=== PATIENT | female | born 1975 | race Caucasian/White ===

== ENCOUNTER 2018-10-12 09:13 | Emergency (ER) | payer MEDICAID ==
--- NOTE | 2018-10-12 09:55 | RADIOLOGY REPORT (SQ) ---
EXAM DESCRIPTION: CHEST SINGLE VIEW COMPLETED DATE/TIME: 10/12/2018 9:44 am REASON FOR STUDY: leg swelling COMPARISON: None. EXAM PARAMETERS: NUMBER OF VIEWS: One view. TECHNIQUE: Single frontal radiographic view of the chest acquired. RADIATION DOSE: NA LIMITATIONS: None. FINDINGS: LUNGS AND PLEURA: No opacities, masses or pneumothorax. No pleural effusion. MEDIASTINUM AND HILAR STRUCTURES: No masses. Contour normal. HEART AND VASCULAR STRUCTURES: Heart normal in size. Normal vasculature. BONES: No acute findings. HARDWARE: None in the chest. OTHER: No other significant finding. IMPRESSION: NO ACUTE RADIOGRAPHIC FINDING IN THE CHEST. TECHNICAL DOCUMENTATION: JOB ID: [id number] [employer]- All Rights Reserved Reading location - IP/workstation name: [email or web address]
[2018-10-12 10:12] LABS: ABSOLUTE BASOPHILS # (AUTO) 0.1 10^3/uL (0.0-0.2); ABSOLUTE EOSINOPHILS # (AUTO) 0.4 10^3/uL (0.0-0.6); ABSOLUTE LYMPHOCYTES (AUTO) 2.3 10^3/uL (0.5-4.7); ABSOLUTE NEUT (AUTO) 10.3 10^3/uL (1.7-8.2); BASOPHILS % (AUTO) 0.5 % (0-2); EOSINOPHILS % (AUTO) 2.8 % (0-6); HEMATOCRIT 37.7 % (36.0-47.0); HEMOGLOBIN 12.9 g/dL (12.0-15.5); LYMPHOCYTES % (AUTO) 16.1 % (13-45); MEAN CORPUSCULAR HEMOGLOBIN 30.8 pg (27.0-33.4); MEAN CORPUSCULAR HGB CONC 34.1 g/dL (32.0-36.0); MEAN CORPUSCULAR VOLUME 90 fl (80-97); MONOCYTES % (AUTO) 7.2 % (3-13); PLATELET COUNT 353 10^3/uL (150-450); RED BLOOD COUNT 4.17 10^6/uL (3.72-5.28); RED CELL DISTRIBUTION WIDTH 16.4 % (11.5-14.0); SEGMENTED NEUTROPHILS % (AUTO) 73.4 % (42-78); TOTAL CELLS COUNTED % (AUTO) 100 %
[2018-10-12 10:31] LABS: ANION GAP 7 (5-19); BLOOD UREA NITROGEN 12 mg/dL (7-20); CARBON DIOXIDE 25 mmol/L (22-30); CHLORIDE 107 mmol/L (98-107); GLUCOSE 82 mg/dL (75-110); POTASSIUM 4.4 mmol/L (3.6-5.0); SODIUM 138.9 mmol/L (137-145)
[2018-10-12 10:45] LABS: NT PRO BNP 377 pg/mL (<125)
[2018-10-12 10:55] LABS: TROPONIN I < 0.012 ng/mL
--- NOTE | 2018-10-12 12:59 | ER Document Report ---
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 She denies any history of heart failure, chest pain, palpitations, shortness of breath, abdominal pain diarrhea constipation dysuria rashes or fevers. She does endorse some chills. Has not tried anything to try and make this better, nothing seems to make it better or worse. Past Medical History - General Information source: Patient, Relative - Social History Smoking Status: Current Every Day Smoker Frequency of alcohol use: None Drug Abuse: None Family History: None Patient has suicidal ideation: No Patient has homicidal ideation: No Endocrine Medical History: Reports: Hx Diabetes Mellitus Type 2 Renal/ Medical History: Denies: Hx Peritoneal Dialysis Past Surgical History: Reports: Hx Cardiac Surgery - Carotid artery surgery, Aortic surgery x2, Hx Orthopedic Surgery - R BKA, Amputation of 5th toe to left foot Review of Systems - Review of Systems -: Yes All other systems reviewed and negative Physical Exam - Vital signs Vitals: Temp Pulse Resp BP Pulse Ox 98.4 F 88 16 149/70 H 98 10/12/18 09:17 10/12/18 09:17 10/12/18 09:17 10/12/18 09:17 10/12/18 09:17 - General General appearance: Appears well In distress: None - HEENT Head: Normocephalic, Atraumatic Eyes: Normal Pupils: PERRL - Respiratory Respiratory status: No respiratory distress Chest status: Nontender Breath sounds: Normal Chest palpation: Normal - Cardiovascular Rhythm: Regular Heart sounds: Normal auscultation Murmur: No - Abdominal Inspection: Normal Distension: No distension - Back Back: Normal - Extremities General upper extremity: Normal inspection General lower extremity: Other - Absent right-sided BKA Left lower extremity is modestly edematous most prominent from the level of the knee inferiorly with +1 pitting edema - Neurological Neuro grossly intact: Yes Cognition: Normal Orientation: AAOx4 Pipe Coma Scale Eye Opening: Spontaneous Pipe Coma Scale Verbal: Oriented Pipe Coma Scale Motor: Obeys Commands Pipe Coma Scale Total: 15 Speech: Normal Motor strength normal: LUE, RUE, LLE Sensory: Normal - Psychological Associated symptoms: Normal affect, Normal mood Course - Re-evaluation Re-evalutation: 42-year-old female with leg swelling. Has profound peripheral vascular disease requiring previous BKA as well as endarterectomy she also has a triple leg continues to smoke at least a pack of cigarettes daily. On examination her leg demonstrates modest pitting edema. There is no obvious erythema, fluctuance, diminished range of motion. Patient does not demonstrate any obvious systemic signs of action at this time. She does demonstrate a slight leukocytosis at this time I do not believe this represents underlying cellulitis or infectious process in the left lower extremity. I believe that the patient's left lower extremity demonstrates dependent edema, she has had labs drawn which was also evaluated for possible cardiac etiology and chest x-ray no obvious edema on chest x-ray. Her BNP is modestly elevated though there is relatively low sensitivity for fluid overloaded at this level. Will plan for this patient undergo discharge with a use of Lasix twice daily. She is in agreement with this plan at this time. Current plan will be for patient undergo discharge with return precautions, she has required social work evaluation because they do not have transportation reliably. Was discharged with a brief prescription for Lasix as listed as well as 3 pills to help with breakthrough pain. - Vital Signs Vital signs: Temp Pulse Resp BP Pulse Ox 98.4 F 88 16 149/70 H 98 10/12/18 09:17 10/12/18 09:17 10/12/18 09:17 10/12/18 09:17 10/12/18 09:17 - Laboratory Result Diagrams: 10/12/18 10:01 10/12/18 10:01 Laboratory results interpreted by me: 10/12/18 10/12/18 10/12/18 10:01 10:01 10:01 WBC 14.0 H RDW 16.4 H Absolute Neutrophils 10.3 H Creatinine 0.51 L NT-Pro-B Natriuret Pep 377 H Discharge - Discharge Clinical Impression: Leg pain, left Edema Qualifiers: Edema type: unspecified Qualified Code(s): R60.9 - Edema, unspecified Condition: Stable Disposition: HOME, SELF-CARE Instructions: Dependent Edema ([facility]), Edema, Peripheral ([facility]) Additional Instructions: Your seen today in the emergency department for the swelling in your leg. I believe that the swelling in your leg is related to fluid retention. Use the medication prescribed to you for the next 3 days to try and help draw fluid off of your leg. Use the pain medication only as needed. Wrap your legs with Deepak wraps and try and prop them to try and help get the fl uid off. Return for worsening chest pain, shortness of breath, leg swelling, fevers or chills. Prescriptions: Furosemide [Lasix 20 mg Tablet] 20 mg PO BID #8 tablet Hydrocodone/Acetaminophen [[place] 5-325 mg Tablet] 1 tab PO Q8H #3 tablet Referrals: JESSICA MADDOX FNP-C [Primary Care Provider] - Follow up as needed
--- NOTE | 2018-10-12 15:39 | XCELERA REPORT ---
[address] [facility] [place] [address] Lower Extremity Venous Evaluation Procedure: Color flow and duplex imaging of the veins of the left lower extremity as well as the right Common Femoral vein. Right Sided Venous Evaluation The right common femoral vein is fully compressible. Spontaneous and phasic flow is present in the right common femoral vein. Left Sided Venous Evaluation Normal vessel filling wall to wall, compression and augmentation as well as Colour flow down to the infrageniculate veins. Interpretation Summary No duplex evidence of DVT or obstruction in the left lower extremity nor in the right Common Femoral vein. Name: SHANE DUMONT Age: 42 yrs Gender: Female : 1975 Patient Status: Emergency Patient Location: ER Study Date: 10/12/2018 10:54 AM Reason For Study: pain left leg / Hx clots Ordering Physician: MORA HAIDER Performed By: Elina Viramontes : MORA HAIDER > Jair Salvador
[2018-10-12 16:07] VITALS: BP 149/69
== END 2018-10-12 14:45 | disposition home or self-care (01) ==
LOC: ER 09:13
DX: R60.9 Edema, unspecified (principal); M79.605 Pain in left leg; I73.9 Peripheral vascular disease, unspecified; E11.9 Type 2 diabetes mellitus without complications; Z89.512 Acquired absence of left leg below knee; F17.200 Nicotine dependence, unspecified, uncomplicated
CPT/HCPCS: 36415; 71045; 80048; 83880; 84484; 85025; 93971; 99284